=== PATIENT | female | born 1995 | race Caucasian/White ===

== ENCOUNTER 2018-11-12 22:11 | Emergency (ER) | payer MEDICAID ==
[2018-11-12] MEDS ORDERED: HYDROmorphone 0.5 MG/0.5 ML Syringe IVPUSH ONE (23:39)
[2018-11-12] MEDS ORDERED: Sodium Chloride 0.9% 10 ML Syringe FLUSH PRN (23:39)
[2018-11-12] MEDS ORDERED: Ketorolac 30 MG/ML SDV IVPUSH ONE (23:39)
[2018-11-12] MEDS ORDERED: methylPREDNISolone Sodium Succinate 125 MG/2 ML SDV IVPUSH ONE (23:39)
--- NOTE | 2018-11-12 23:48 | EDM.PDOC ---
ED HPI GENERAL MEDICAL PROBLEM - General Chief Complaint: ONCOLOGY PHYSICIAN ASSISTANT Problem Stated Complaint: ILLNESS Time Seen by Provider: 11/12/18 23:10 Source of Information: Reports: Patient, Family History Limitations: Reports: No Limitations - History of Present Illness INITIAL COMMENTS - FREE TEXT/NARRATIVE: 23-year-old female with ongoing chronic endometriosis and chronic pelvic pain, has an ONCOLOGY PHYSICIAN ASSISTANT consult in one week. She had a vaginal delivery 6 months ago and has had persistent pain in the scar, and generalized abdominal pain during her menstrual cycles. She is currently menstruating and is having significant discomfort. She has gone to several doctors in several ERs and no one "will do anything for her". She had an IUD removed in June because she was having difficulty with. She has no fevers or chills, she is nauseated. Associated Symptoms: Reports: Nausea/Vomiting. Denies: Cough, Diaphoresis, Fever/Chills, Headaches, Shortness of Breath Pelvic Pain Score (Numeric/FACES): 10 - Related Data Allergies Allergy/AdvReac Type Severity Reaction Status Date / Time Penicillins Allergy Hives Verified 11/12/18 23:02 Home Meds: Home Meds Venlafaxine HCl [Venlafaxine ER] 75 mg PO DAILY 11/12/18 [History] Past Medical History Cardiovascular History: Reports: Heart Murmur Genitourinary History: Reports: UTI, Recurrent ONCOLOGY PHYSICIAN ASSISTANT History: Reports: Endometriosis, Psychiatric History: Reports: Anxiety, Depression Hematologic History: Reports: Blood Transfusion(s), Other (See Below) Other Hematologic History: 1st transfustion March 2018 2nd transfusion April 2018 Dermatologic History: Reports: Eczema - Infectious Disease History Infectious Disease History: Reports: Chicken Pox - Past Surgical History Female Surgical History: Reports: Section Social & Family History - Tobacco Use Smoking Status *Q: Current Every Day Smoker Years of Tobacco use: 10 Packs/Tins Daily: 5 Second Hand Smoke Exposure: Yes - Caffeine Use Caffeine Use: Reports: Coffee - Recreational Drug Use Recreational Drug Use: No ED ROS GENERAL - Review of Systems Review Of Systems: See Below Constitutional: Denies: Fever, Chills Respiratory: Denies: Shortness of Breath, Cough Cardiovascular: Denies: Chest Pain GI/Abdominal: Reports: Abdominal Pain, Nausea, Vomiting. Denies: Constipation, Diarrhea : Reports: Dysuria (Intermittent dysuria, urine was normal 3 days ago as well as a negative test) Skin: Reports: Other ( scars is thick and sore but not inflamed or reddened) ED EXAM, GENERAL - Physical Exam Exam: See Below Exam Limited By: No Limitations General Appearance: Alert, No Apparent Distress (Patient is not acutely distressed but does look very uncomfortable) Eye Exam: Bilateral Eye: Normal Inspection Respiratory/Chest: No Respiratory Distress, Lungs Clear GI/Abdominal: Tender (Very tender to palpation across the lower abdomen with some guarding) (Female) Exam: Other (A speculum exam was done and despite significant discomfort at the introitus there were no lesions or vaginal mucosa abnormalities. There was hemorrhage in the vaginal vault. Cervix was very posterior but appeared normal.) Course - Vital Signs Last Recorded V/S: Last Vital Signs Temp 97.2 F 11/12/18 23:05 Pulse 78 11/12/18 23:05 Resp 12 11/12/18 23:05 BP 132/70 11/12/18 23:05 Pulse Ox 97 11/12/18 23:05 - Orders/Labs/Meds Orders: Active Orders 24 hr Category Date Time Status Saline Lock Insert [OM.PC] Routine Oth 11/12/18 23:39 Ordered Meds: Medications Discontinued Medications Generic Name Dose Route Start Last Admin Trade Name Aury PRN Reason Stop Dose Admin Hydromorphone HCl 0.5 mg 11/12/18 23:39 11/12/18 23:53 Dilaudid IVPUSH 11/12/18 23:40 0.5 mg ONETIME ONE Administration Ketorolac Tromethamine 30 mg 11/12/18 23:39 11/12/18 23:51 Toradol IVPUSH 11/12/18 23:40 30 mg ONETIME ONE Administration Methylprednisolone Sodium Succinate 125 mg 11/12/18 23:39 11/12/18 23:53 Solu-Medrol IVPUSH 11/12/18 23:40 125 mg ONETIME ONE Administration Sodium Chloride 10 ml 11/12/18 23:39 11/12/18 23:51 Saline Flush FLUSH 10 ml ASDIRECTED PRN Administration Keep Vein Open - Re-Assessments/Exams Free Text/Narrative Re-Assessment/Exam: 11/12/18 23:46 Labs were not repeated, they were done just a few days ago at another emergency room. We had a long discussion on options for treatment. A saline lock was started, the patient was given 30 mg of IV Toradol, 0.5 mg of IV Dilaudid, and 125 mg of Solu-Medrol. She'll be discharged with 20 additional doses of Toradol to take 3 times a day. She needs to recheck with her ONCOLOGY PHYSICIAN ASSISTANT as scheduled. Departure - Departure Time of Disposition: 00:16 Disposition: Home, Self-Care 01 Condition: Good Clinical Impression: Endometriosis - Discharge Information Instructions: Endometriosis Referrals: PCP,None [Primary Care Provider] - Forms: ED Department Discharge Care Plan Goals: Take one Toradol every 6-8 hours until gone, increase activity as tolerated and recheck with the ONCOLOGY PHYSICIAN ASSISTANT as scheduled. - My Orders Last 24 Hours: My Active Orders 11/12/18 23:39 Saline Lock Insert [OM.PC] Routine - Assessment/Plan Last 24 Hours: My Active Orders 11/12/18 23:39 Saline Lock Insert [OM.PC] Routine
== END 2018-11-13 00:18 | disposition home or self-care (01) ==
LOC: JP.ED 22:11
DX: N80.9 Endometriosis, unspecified (principal); F17.210 Nicotine dependence, cigarettes, uncomplicated; F41.9 Anxiety disorder, unspecified; F32.9 Major depressive disorder, single episode, unspecified; Z79.899 Other long term (current) drug therapy; Z88.0 Allergy status to penicillin
CPT/HCPCS: 96374; 96375; 99284; J1170; J1885; J2930

== ENCOUNTER 2019-02-03 00:08 | Emergency (ER) | payer MEDICAID ==
[2019-02-03] MEDS ORDERED: Morphine 10 MG/ML Syringe SUBCUT ONE (00:49)
--- NOTE | 2019-02-03 00:54 | EDM.PDOC ---
ED HPI GENERAL MEDICAL PROBLEM - General Chief Complaint: Abdominal Pain Stated Complaint: ABDOMINAL PAIN Time Seen by Provider: 02/03/19 00:25 Source of Information: Reports: Patient History Limitations: Reports: No Limitations - History of Present Illness INITIAL COMMENTS - FREE TEXT/NARRATIVE: 23-year-old female who has chronic pelvic pain from endometriosis underwent a procedure last Sunday for a scar revision and ablation of endometriosis. She was discharged on Sunday and return to the emergency room the following day, Sunday. She was in severe pain but her workup was completely negative, including a CT scan. Pain control was given which helped. She has no fever or chills, has not had a bowel movement yet but is passing urine. No nausea or vomiting. Duration: Day(s): (Significant pain since her surgery) Associated Symptoms: Reports: Loss of Appetite, Malaise. Denies: Fever/Chills, Nausea/Vomiting incisional Pain Score (Numeric/FACES): 10 - Related Data Allergies Allergy/AdvReac Type Severity Reaction Status Date / Time Penicillins Allergy Hives Verified 02/03/19 00:27 Home Meds: Home Meds Venlafaxine HCl [Venlafaxine ER] 75 mg PO DAILY 11/12/18 [History] Gabapentin [Neurontin] 2 tab PO TID 02/03/19 [History] hydrOXYzine HCl [Atarax] 25 mg PO TID PRN 02/03/19 [History] Past Medical History Cardiovascular History: Reports: Heart Murmur Genitourinary History: Reports: UTI, Recurrent FINANCIAL COUNSELOR History: Reports: Endometriosis, Psychiatric History: Reports: Anxiety, Depression Endocrine/Metabolic History: Reports: Obesity/BMI 30+ Hematologic History: Reports: Blood Transfusion(s), Other (See Below) Other Hematologic History: 1st transfustion March 2018 2nd transfusion April 2018 Dermatologic History: Reports: Eczema - Infectious Disease History Infectious Disease History: Reports: Chicken Pox - Past Surgical History Female Surgical History: Reports: Section, D&C Social & Family History - Tobacco Use Smoking Status *Q: Current Every Day Smoker Years of Tobacco use: 8 Packs/Tins Daily: 0.5 - Caffeine Use Caffeine Use: Reports: None - Recreational Drug Use Recreational Drug Use: Yes Drug Use in Last 12 Months: Yes Recreational Drug Type: Reports: Marijuana/Hashish Recreational Drug Use Frequency: Socially ED ROS GENERAL - Review of Systems Review Of Systems: See Below Constitutional: Reports: Malaise. Denies: Fever, Chills HEENT: Reports: No Symptoms Respiratory: Denies: Shortness of Breath Cardiovascular: Denies: Chest Pain GI/Abdominal: Reports: Abdominal Pain Skin: Reports: Bruising (Bruising and edema of the groin area and lower abdomen) ED EXAM, GI/ABD - Physical Exam Exam: See Below Exam Limited By: No Limitations General Appearance: Alert, Moderate Distress Eyes: Bilateral: Normal Appearance Respiratory/Chest: No Respiratory Distress GI/Abdominal Exam: Normal Bowel Sounds, Soft, Tender (Very Tender to palpation across the lower abdomen which is expected incision looks excellent. She also has moderate bruising in the perineum area.) Course - Vital Signs Last Recorded V/S: Last Vital Signs Temp 97.9 F 02/03/19 00:31 Pulse 91 02/03/19 00:31 Resp 24 H 02/03/19 00:31 BP 153/87 H 02/03/19 00:31 Pulse Ox 96 02/03/19 00:31 - Orders/Labs/Meds Meds: Medications Discontinued Medications Generic Name Dose Route Start Last Admin Trade Name Aury PRN Reason Stop Dose Admin Docusate Sodium 100 mg 02/03/19 00:59 02/03/19 01:09 Colace PO 02/03/19 01:00 100 mg ONETIME ONE Administration Morphine Sulfate 10 mg 02/03/19 00:49 02/03/19 00:56 Morphine SUBCUT 02/03/19 00:50 10 mg ONETIME ONE Administration - Re-Assessments/Exams Free Text/Narrative Re-Assessment/Exam: 02/03/19 00:53 Explained to the patient that she had a complete workup just over 24 hours ago and everything was going as expected. She was given 10 mg of subcutaneous morphine and 12 additional doses of Percocet and I encouraged her to call her surgeon tomorrow to see if he wants to repeat a CAT scan or ultrasound. Avoid heat, she took a hot bath yesterday which probably worsening swelling. Departure - Departure Time of Disposition: 01:15 Disposition: Home, Self-Care 01 Condition: Fair Clinical Impression: Abdominal pain Qualifiers: Abdominal location: lower abdomen, unspecified Qualified Code(s): R10.30 - Lower abdominal pain, unspecified - Discharge Information Instructions: Abdominal Pain, Adult, [id number] Referrals: PCP,None [Primary Care Provider] - Forms: ED Department Discharge Care Plan Goals: Continue with pain medications on a regular basis, and call your surgeon tomorrow to inquire about further testing such as another CT scan or ultrasound.
[2019-02-03] MEDS ORDERED: Docusate Sodium 100 MG Cap PO ONE (00:59)
== END 2019-02-03 01:15 | disposition home or self-care (01) ==
LOC: JP.ED 00:08
DX: R10.30 Lower abdominal pain, unspecified (principal); F17.210 Nicotine dependence, cigarettes, uncomplicated; F41.9 Anxiety disorder, unspecified; F32.9 Major depressive disorder, single episode, unspecified; Z79.899 Other long term (current) drug therapy; Z88.0 Allergy status to penicillin
CPT/HCPCS: 96372; 99283; A9270; J2270